=== PATIENT | male | born 1955 | race Caucasian/White ===

== ENCOUNTER 2023-04-02 11:41 | Day surgery (SDC) | payer MEDICARE ==
[~2023-04-02] VITALS: Ht 182.9 cm; Wt 83.8 kg
[~2023-04-02 11:41] MED LIST: EZET10 PO; FENO160 PO; GLIP5 PO; GLUCOPHAGE1000 M1 PO; LISI5 PO; METO25ER PO; NITR.4SL SL; VASCEPA1 G1
[2023-04-02] MEDS ORDERED: ASPI81CH (11:56)
[2023-04-02] MEDS ORDERED: Vitamin C100 MG (11:56)
[2023-04-02] MEDS ORDERED: FISH OIL 1,2001 EAC4 (11:57)
[2023-04-02] MEDS ORDERED: VITAMIN B-1250 MCG (11:57)
[2023-04-02] MEDS ORDERED: TRITOCIN430 GM (11:58)
[2023-04-02] MEDS ORDERED: KETO15TC (11:58)
[2023-04-02] MEDS ORDERED: ZINC15 (11:59)
[2023-04-02 14:51] VITALS: BP 104/74
== END 2023-04-02 14:50 | disposition home or self-care (01) ==
LOC: ORSCSDS 11:41
PROVIDERS: Internal Medicine Gastroenterology
PROC: 0DBN8ZX Excision of Sigmoid Colon, Via Natural or Artificial Opening Endoscopic, Diagnostic (ICD-10-PCS; principal; 2023-04-02 13:15)
DX: Z12.11 Encounter for screening for malignant neoplasm of colon (principal); Z86.010 Personal history of colon polyps; K63.5 Polyp of colon; K64.8 Other hemorrhoids; K57.30 Diverticulosis of large intestine without perforation or abscess without bleeding; I25.10 Atherosclerotic heart disease of native coronary artery without angina pectoris; Z87.891 Personal history of nicotine dependence; I10 Essential (primary) hypertension; I25.2 Old myocardial infarction; E11.9 Type 2 diabetes mellitus without complications; Z79.84 Long term (current) use of oral hypoglycemic drugs; Z79.82 Long term (current) use of aspirin; Z79.899 Other long term (current) drug therapy
CPT/HCPCS: 82947; 88305; J2704; J7120

== ENCOUNTER 2023-06-15 09:19 | Observation (INO) | payer MEDICARE ==
[~2023-06-15] VITALS: Ht 182.9 cm; Wt 84.5 kg
[~2023-06-15 09:19] MED LIST changes: +ASPI81CH PO; +Acerola C500 MG PO; +FISH OIL 1,2001 EAC4; +KETO15TC; +TRITOCIN430 GM; +VITAMIN B-1250 MCG; +ZINC15
[2023-06-15] MEDS ORDERED: K-RIGHT SOFTGE1 EACH PO (09:53)
[2023-06-15 09:56] LABS: BASOPHILS ABSOLUTE AUTO 0.04 K/mm3 (0.00-0.23); BASOPHILS PERCENT AUTO 1 % (0-2); EOSINOPHILS ABSOLUTE AUTO 0.24 K/mm3 (0.00-0.68); EOSINOPHILS PERCENT AUTO 3 % (0-6); Hematocrit 48.8 % (37.0-53.0); Hemoglobin 16.9 g/dL (13.5-17.5); IMMATURE GRAN ABSOLUTE AUTO 0.04 K/mm3 (0.00-0.10); IMMATURE GRAN PERCENT AUTO 1 % (0-1); LYMPHOCYTES ABSOLUTE AUTO 1.45 K/mm3 (0.84-5.20); LYMPHOCYTES PERCENT AUTO 17 % (21-46); MONOCYTES ABSOLUTE AUTO 0.71 K/mm3 (0.16-1.47); MONOCYTES PERCENT AUTO 9 % (4-13); Mean Corpuscular HGB 30.1 pg (26.0-34.0); Mean Corpuscular HGB Conc 34.6 g/dL (31.5-36.5); Mean Corpuscular Volume 87 fL (80-100); Mean Platelet Volume 9.1 fL (9.1-12.4); NEUTROPHILS ABSOLUTE AUTO 5.83 K/mm3 (1.96-9.15); NEUTROPHILS PERCENT AUTO 70 % (41-73); Platelet Count 249 K/mm3 (150-400); RDW Coefficient Variation 12.3 % (11.7-14.2); Red Blood Cell Count 5.62 M/mm3 (4.30-5.90); White Blood Cell Count 8.31 K/mm3 (4.00-11.30)
[2023-06-15 10:15] LABS: Albumin, Blood 4.2 g/dL (3.4-5.0); Albumin/Globulin Ratio 1.3 (0.8-1.8); Bilirubin, Total 0.5 mg/dL (0.1-1.0); Bun/Creatinine Ratio 15.9 (12.0-20.0); Calcium, Blood 9.4 mg/dL (8.5-10.1); Creatinine, Blood 1.26 mg/dL (0.60-1.20); Globulin, Blood 3.2 g/dL (2.2-4.0); Potassium, Blood 4.2 mmol/L (3.5-5.5); Total Protein, Blood 7.4 g/dL (6.4-8.2)
[2023-06-15 16:40] VITALS: BP 118/76
--- NOTE | 2023-06-15 17:01 | NUR ---
PT ARRIVED TO MEDICL FLOOR @1550 VIA WHEELCHAIR. PT INDEPENDENT IN ROOM. C/O 4-510 CHEST PAIN BUT STATES IT IS BETTER THAN SINCE HE CAME TO ER. SKIN INTACT. IV FLUSHES AND SALINE LOCKED. TELE TO BE PLACED ONCE IT ARRIVES. PLEASANT AND COOPERATIVE MAN. NPO AFTER MIDNIGHT FOR POSSIBLE PROCEDURE TOMORROW. CALL LIGHT IN REACH. IGNITION SOURCES DISCUSSED WITH PT.
[2023-06-15 20:12] VITALS: BP 113/69
[2023-06-16] VITALS (9 sets, daily range): BP systolic 104–136; BP diastolic 67–83
--- NOTE | 2023-06-16 04:31 | NUR ---
NOC SHIFT SUMMARY: PT IN FOR CHEST PAIN/PRESSURE. TYLENOL GIVEN LAST NIGHT WITH GOOD RELIEF. INDEPENDENT. ALERT AND ORIENTED X4. CARDIAC CATHETERIZATION TODAY. NPO SINCE MIDNIGHT. POSSIBLE DC HOME AFTER PROCEDURE. MELATONIN ORDERED FOR SLEEP.
[2023-06-16 05:16] LABS: BASOPHILS ABSOLUTE AUTO 0.03 K/mm3 (0.00-0.23); BASOPHILS PERCENT AUTO 0 % (0-2); EOSINOPHILS ABSOLUTE AUTO 0.26 K/mm3 (0.00-0.68); EOSINOPHILS PERCENT AUTO 3 % (0-6); Hematocrit 45.3 % (37.0-53.0); Hemoglobin 15.2 g/dL (13.5-17.5); IMMATURE GRAN ABSOLUTE AUTO 0.02 K/mm3 (0.00-0.10); IMMATURE GRAN PERCENT AUTO 0 % (0-1); LYMPHOCYTES ABSOLUTE AUTO 1.25 K/mm3 (0.84-5.20); LYMPHOCYTES PERCENT AUTO 14 % (21-46); MONOCYTES ABSOLUTE AUTO 0.87 K/mm3 (0.16-1.47); MONOCYTES PERCENT AUTO 10 % (4-13); Mean Corpuscular HGB 29.6 pg (26.0-34.0); Mean Corpuscular HGB Conc 33.6 g/dL (31.5-36.5); Mean Corpuscular Volume 88 fL (80-100); Mean Platelet Volume 9.2 fL (9.1-12.4); NEUTROPHILS ABSOLUTE AUTO 6.55 K/mm3 (1.96-9.15); NEUTROPHILS PERCENT AUTO 73 % (41-73); Platelet Count 219 K/mm3 (150-400); RDW Coefficient Variation 12.4 % (11.7-14.2); RDW Standard Deviation 39.8 fL (35.1-46.3); Red Blood Cell Count 5.14 M/mm3 (4.30-5.90); White Blood Cell Count 8.98 K/mm3 (4.00-11.30)
[2023-06-16 05:43] LABS: Albumin, Blood 3.7 g/dL (3.4-5.0); Albumin/Globulin Ratio 1.4 (0.8-1.8); Bilirubin, Total 0.5 mg/dL (0.1-1.0); Bun/Creatinine Ratio 13.3 (12.0-20.0); Calcium, Blood 9.1 mg/dL (8.5-10.1); Creatinine, Blood 1.5 mg/dL (0.60-1.20); Globulin, Blood 2.7 g/dL (2.2-4.0); Potassium, Blood 4.8 mmol/L (3.5-5.5); Total Protein, Blood 6.4 g/dL (6.4-8.2)
--- NOTE | 2023-06-16 11:50 | NUR ---
PT TO [facility]OV[facility] ROOM AFTER CORONARY ANGIOGRAM. R RADIAL TR BAND IN PLACE. 10CC OF AIR IN BAND. NO BLEEDING OR HEMATOMA NOTED. VSS. DENIES NEEDS. DR CHAMBERLAIN IN ROOM DISCUSSING PLAN OF CARE WITH PATIENT AND FAMILY. PT AWAITING PCU RM FOR CONTINUATION OF CARE.
--- NOTE | 2023-06-16 12:26 | NUR ---
PATIENT TO PROPERTY DISPOSAL OFFICER AND WILL TRANSFER TO PCU 17 AFTERWARDS. CALLED REPORT TO DAKOTA FLOYD IN PCU. BELONGINGS TAKEN TO NEW ROOM.
--- NOTE | 2023-06-16 13:04 | NUR ---
Telephone report received from both Medical floor RN as well as [facility]. Pt arrived to PCU 17, in wheelchair, alert and oriented, pleasantly conversant, and denies any chest discomfort at this time. Transferred independently from wheelchair to the bed, sitting upright and eager to eat his lunch. Transradial band in place on the right wrist, site is without bleeding, bruising, swelling, and pt denies any pain/numbness/tingling in the right arm and hand. Vital signs taken, noted stable.
--- NOTE | 2023-06-16 13:34 | NUR ---
Pt has finished lunch. Right wrist access site remains unchanged from prior assessment. Pt continues to deny any symptoms.
--- NOTE | 2023-06-16 15:04 | NUR ---
TR band deflated completed gradually over the course of 1 hour. Right radial site remains WNL. TR band in place for 1 hour and then removal before discharge.
[2023-06-16] MEDS ORDERED: Isosorbide Mono30 MG PO (15:48)
--- NOTE | 2023-06-16 16:33 | NUR ---
One hour post TR band deflation completed, TR band was removed. Moments later while the site was visualized, a hematoma began to develop under the skin with small amount of oozing from the skin also noted. Right wrist was elevated and direct pressure applied, and catalyst manufacturing operator Kishore called to bedside to assist. after 10 minutes, the hematoma was resolved and bruising was demarkated with marker. Area was covered with a pressure dressing of gauze and coban, and wrist elevated with use of sling. The pt denies any numbness/pain. States it feels better than when manual pressure was being applied. Cap refill of fingers is less than 3 seconds, spo2 97% measured on the right hand, 2 nd digit. Will recheck again shortly.
--- NOTE | 2023-06-16 16:38 | NUR ---
Pt is resting quietly in bed, right arm elevated and he states that he is comfortable.
--- NOTE | 2023-06-16 18:03 | NUR ---
Coban and gauze removed from the right wrist, certified flex endoscope reprocessor Kishore also present. Bruising area has not increased beyond the demarkated area, and there is no hematoma present. Skin was cleaned with chloroprep swab and sterile tegederm dressing was applied. White immoblizer board placed and sling to support the arm during transport home. Pt and his were given instructions on how to watch for and respond if there was any evidence of bleeding. They were provided with written instructions as well. Verbalized understanding, and very receptive and exhibited knowledge of the information given. PT was taken out to private vehicle by [facility]. His is the water truck driver.
== END 2023-06-16 18:00 | disposition home or self-care (01) ==
LOC: ER 09:19 → MEDS 09:20 → PCU 06-16 13:01
PROVIDERS: Emergency Medicine; ADMIT Family Medicine
DX: I25.110 Atherosclerotic heart disease of native coronary artery with unstable angina pectoris (principal); E78.5 Hyperlipidemia, unspecified; I25.2 Old myocardial infarction; E11.9 Type 2 diabetes mellitus without complications; I10 Essential (primary) hypertension; E66.3 Overweight; Z95.5 Presence of coronary angioplasty implant and graft; Z87.891 Personal history of nicotine dependence; Z88.8 Allergy status to other drugs, medicaments and biological substances; Z79.84 Long term (current) use of oral hypoglycemic drugs; Z79.82 Long term (current) use of aspirin
CPT/HCPCS: 36415; 71045; 76937; 80053; 82947; 84484; 85025; 93005; 93010; 93458; 96374; 96375; 99152; 99285-25; A9270; C1769; C1887; C1894; G0378; J1644; J2250; J2270; J3010; J7030; J7050; Q9967

== ENCOUNTER 2025-07-02 04:33 | Emergency (ER) | payer OTHER ==
[~2025-07-02] VITALS: Ht 182.9 cm; Wt 88.5 kg
[~2025-07-02 04:33] MED LIST changes: +Isosorbide Mono30 MG PO; +K-RIGHT SOFTGE1 EACH PO
[2025-07-02] MEDS ORDERED: NS 1,000 ML IV SCH ×2 (05:35→05:40)
[2025-07-02 07:29] LABS: BASOPHILS ABSOLUTE AUTO 0.02 K/mm3 (0.00-0.23); BASOPHILS PERCENT AUTO 0 % (0-2); EOSINOPHILS ABSOLUTE AUTO 0.01 K/mm3 (0.00-0.68); EOSINOPHILS PERCENT AUTO 0 % (0-6); Hematocrit 35.4 % (37.0-53.0); Hemoglobin 12.0 g/dL (13.5-17.5); IMMATURE GRAN ABSOLUTE AUTO 0.03 K/mm3 (0.00-0.10); IMMATURE GRAN PERCENT AUTO 0 % (0-1); LYMPHOCYTES ABSOLUTE AUTO 0.59 K/mm3 (0.84-5.20); LYMPHOCYTES PERCENT AUTO 5 % (21-46); MONOCYTES ABSOLUTE AUTO 0.64 K/mm3 (0.16-1.47); MONOCYTES PERCENT AUTO 6 % (4-13); Mean Corpuscular HGB Conc 33.9 g/dL (31.5-36.5); Mean Corpuscular Volume 89 fL (80-100); NEUTROPHILS ABSOLUTE AUTO 9.74 K/mm3 (1.96-9.15); NEUTROPHILS PERCENT AUTO 88 % (41-73); NRBC ABSOLUTE 0.00 K/mm3 (0.00-0.02); NRBC Auto 0.0 /100 WBC (0.0-0.2); Platelet Count 206 K/mm3 (150-400); RDW Coefficient Variation 11.9 % (11.7-14.2); RDW Standard Deviation 38.5 fL (35.1-46.3)
[2025-07-02 07:45] LABS: Alanine Aminotransfer (ALT/SGP 29.0 U/L (12-78); Albumin, Blood 2.8 g/dL (3.4-5.0); Albumin/Globulin Ratio 1.5 (0.8-1.8); Anion Gap 11.0 mmol/L (3-11); Aspartate Aminotrans (AST/SGOT 17.0 U/L (12-37); Bilirubin, Total 0.3 mg/dL (0.1-1.0); Blood Urea Nitrogen 26.0 mg/dL (8-24); CO2, Blood 20.0 mmol/L (21-32); Calcium, Blood 7.3 mg/dL (8.5-10.1); Chloride, Blood 114.0 mmol/L (98-108); Creatinine, Blood 1.41 mg/dL (0.60-1.20); Globulin, Blood 1.9 g/dL (2.2-4.0); Glucose, Blood 205.0 mg/dL (70-99); Potassium, Blood 4.5 mmol/L (3.5-5.5); Sodium, Blood 140.0 mmol/L (136-145); Total Protein, Blood 4.7 g/dL (6.4-8.2)
[2025-07-02 08:30] VITALS: BP 99/63
== END 2025-07-02 08:30 | disposition home or self-care (01) ==
LOC: ER 04:33
PROVIDERS: Emergency Medicine
DX: S01.81XA Laceration without foreign body of other part of head, initial encounter (principal); I95.9 Hypotension, unspecified; I25.10 Atherosclerotic heart disease of native coronary artery without angina pectoris; I25.2 Old myocardial infarction; I10 Essential (primary) hypertension; E11.9 Type 2 diabetes mellitus without complications; Z95.5 Presence of coronary angioplasty implant and graft; Z88.8 Allergy status to other drugs, medicaments and biological substances; Z79.82 Long term (current) use of aspirin; Z79.84 Long term (current) use of oral hypoglycemic drugs; Z79.899 Other long term (current) drug therapy; W19.XXXA Unspecified fall, initial encounter
CPT/HCPCS: 12013; 70450; 70486; 80053; 84484; 85025; 90471; 90715; 93005; 93010; 99284-25; J7030